=== PATIENT | male | born 1930 | race Caucasian/White ===

== ENCOUNTER 2017-02-25 07:38 | Emergency (ER) | payer OTHER ==
[~2017-02-25] VITALS: Ht 180.3 cm; Wt 85.7 kg
[~2017-02-25 07:38] MED LIST: CHOL100010 PO; GLCSUNK PO; ISOS30TA3 PO; LSNUNK PO; MULT-506 PO; NTRGSL/4 UT; ZCRUNK PO
[2017-02-25 07:43] VITALS: TEMP 36.4; Ht 180.3 cm; Wt 85.7 kg
[2017-02-25] MEDS ORDERED: SODIUM CHLORIDE 0.9% 1000ML 1,000 ML IV STA (08:20)
[2017-02-25] MEDS ORDERED: KETOROLAC TROMETHAMINE 30 MG/ML VIAL IV STA (08:20)
[2017-02-25 08:34] LABS: BASO % 0.2 %; BASO ABS # 0.02 K/uL (0-0.2); COMPLETE YES; EOS % 0.3 %; HEMATOCRIT 41.4 % (42-52); IG% 0.2 %; LYMPH % 21.4 %; MEAN CELL VOLUME 90.6 fL (80-100); MEAN CORPUSCULAR HEMOGLOBIN 30.9 pg (25-34); MEAN CORPUSCULAR HGB CONC 34.1 g/dl (32-36); MEAN PLATELET VOLUME 10.6 fL (7.4-10.4); MONO % 8.1 %; NEUT % 69.8 %; PLATELET COUNT 169 K/uL (130-400); RED BLOOD COUNT 4.57 M/uL (4.7-6.1); WHITE BLOOD COUNT 11.68 K/uL (4.8-10.8)
[2017-02-25 08:44] LABS: BUN/CREATININE RATIO 18.7 (10-20); CALCIUM 8.7 mg/dl (8.5-10.1); CREATININE 1.2 mg/dl (0.60-1.40); POTASSIUM 3.8 mmol/L (3.5-5.1)
--- NOTE | 2017-02-25 08:59 | DIAGNOSTIC IMAGING REPORT ---
ABDOMEN 2VIEW W/PA CHEST RTN CLINICAL HISTORY: right upper quadrant pain/constipation pain COMPARISON STUDY: No previous studies for comparison. FINDINGS: Calcification to the right of the L4-L5 level of the lumbar spine. Possibility of a ureteral calculus is considered. No acute process the chest. Nonobstructive bowel pattern. Moderate degenerative changes of the osseous structures throughout. IMPRESSION: Possible mid right ureteral calculus. Otherwise negative study Electronically signed by: Eduardo Warren M.D. 02/25/2017 8:58 AM Dictated Date/Time: 02/25/2017 8:57 AM
--- NOTE | 2017-02-25 09:58 | DIAGNOSTIC IMAGING REPORT ---
CT SCAN OF THE ABDOMEN AND PELVIS WITHOUT CONTRAST CLINICAL HISTORY: Right-sided abdominal pain. COMPARISON STUDY: No previous studies for comparison. TECHNIQUE: CT scan of the abdomen and pelvis was performed from the lung bases to the proximal femurs. Images are reviewed in the axial, sagittal, and coronal planes. IV contrast was not administered for this examination. CT DOSE: 1049.23 mGycm FINDINGS: Lower chest: There are moderate coronary artery calcifications. There is pulmonary emphysema. There is mild bibasal atelectasis. Liver: The unenhanced liver is normal in size, contour, and attenuation. There is no intrahepatic biliary ductal dilatation. Gallbladder: Unremarkable. Spleen: Normal in size and attenuation. Pancreas: Unremarkable. Adrenal glands: Unremarkable. Kidneys: No renal calculi are visualized. There is right-sided hydronephrosis and right-sided perinephric stranding. There is right-sided periureteral edema. There is a 7 mm obstructing proximal to mid right ureteral calculus at the L5 level. Bowel: There are no transition zones to indicate bowel obstruction. There is colonic diverticulosis. There are no acute peridiverticular inflammatory changes. The appendix appears normal as visualized. There is a small hiatal hernia. Peritoneum: There is no intraperitoneal free air or abdominal ascites. Vasculature: The abdominal aorta is normal in course and caliber. There are extensive atheromatous calcification within the right common femoral, superficial femoral, and profunda artery. There is also dense calcification at the superior mesenteric artery origin. Adenopathy: None. Pelvic viscera: The prostate is mildly enlarged. Skeletal structures: No destructive osseous lesions are seen. IMPRESSION: 1. 7 mm obstructing proximal to mid right ureteral calculus at the L5 level with secondary right-sided hydroureteronephrosis. Electronically signed by: Brian Sullivan M.D. 02/25/2017 9:57 AM Dictated Date/Time: 02/25/2017 9:52 AM
[2017-02-25] MEDS ORDERED: CYAN100073 (10:45)
[2017-02-25] MEDS ORDERED: GLUC10007 PO (10:45)
[2017-02-25] MEDS ORDERED: FAMO40TA6 PO (10:45)
[2017-02-25] MEDS ORDERED: ISOS30TA35 PO (10:45)
[2017-02-25] MEDS ORDERED: CLOP1TAB15 PO (10:45)
[2017-02-25] MEDS ORDERED: SIMV20TA2 PO (10:45)
[2017-02-25] MEDS ORDERED: ERGO500037 PO (10:45)
[2017-02-25] MEDS ORDERED: MULT-839 (10:45)
[2017-02-25] MEDS ORDERED: LISI-461 (10:45)
[2017-02-25] MEDS ORDERED: ASPI81TA28 PO (10:45)
[2017-02-25] MEDS ORDERED: MULT-1018 (10:45)
[2017-02-25] MEDS ORDERED: TAMS0.4C38 PO (10:53)
[2017-02-25] MEDS ORDERED: ONDA4TAB10 SL (10:53)
[2017-02-25] MEDS ORDERED: HYDR-5688 PO (10:54)
[2017-02-25 10:58] LABS: URINE APPEARANCE CLEAR (CLEAR); URINE BILIRUBIN NEG (NEG); URINE COLOR DK YELLOW; URINE NITRITE NEG (NEG); URINE SPECIFIC GRAVITY 1.027 (1.000-1.030); UROBILINOGEN NEG (NEG); ZZUR CULT IF INDIC CLEAN CATCH YES
[2017-02-25 11:18] LABS: MANUAL MICROSCOPIC REQUIRED? NO; REVIEW REQ? YES
--- NOTE | 2017-02-25 11:31 | EMERGENCY ROOM VISIT NOTE ---
History First contact with patient: 07:47 Chief Complaint: ABDOMINAL PAIN Stated Complaint: PAIN IN RIGHT SIDE Nursing Triage Summary: RUQ/right flank pain that started yesterday. Denies N/V/D. History of Present Illness The patient is a 86 year old male who presents to the Emergency Room with complaints of right upper to right mid abdomen pain which started yesterday. The patient denies any fever. The patient does admit to some nausea yesterday but not today. The patient denies any vomiting or diarrhea. The patient denies any urinary symptoms of frequency, urgency, dysuria or hematuria. The patient denies any history of kidney stones. The patient does admit to history of chronic constipation. Yesterday he went to the pharmacy and the pharmacist instructed him to use some stool softeners. He states he used them yesterday and had a very small bowel movement this morning. The patient currently is rating the pain at an 8 out of 10. The patient denies any chest pain or shortness of breath. The patient's family doctor is Dr. Davis Review of Systems 10 system review was performed and was negative unless stated otherwise history of present illness. Past Medical/Surgical History CAD, hyperlipidemia Social History Smoking Status: Never Smoker Smokeless Tobacco Use: No Drug Use: none Marital Status: Housing Status: lives with family Occupation Status: retired Current/Historical Medications Scheduled Aspirin (Aspirin Ec), 81 MG PO DAILY Clopidogrel (Plavix), 75 MG PO DAILY Cyanocobalamin (B12), three times a week Ergocalciferol (Vitamin D 47716 Unit), 1 CAP PO WK Famotidine (Pepcid), 1 TAB PO DAILY Isosorbide Mononitrate Ext Rel (Imdur Ext Rel), 1 TAB PO QAM Multivitamin (Multivitamin), 1 TAB PO DAILY Nitroglycerin (Nitrostat), 0.4 MG UT PRN Ondasetron Odt (Zofran Odt), 4 MG SL Q6H Simvastatin (Zocor), 1 TAB PO DAILY Tamsulosin Hcl (Flomax), 0.4 MG PO DAILY Scheduled PRN Hydrocodone/Acetaminophen 5MG/325MG ([place] 5MG/325MG), 1-2 TABLET PO Q6 PRN for Pain Miscellaneous Medications Glucosamine Sulfate (Glucosamine), 1,000 MG PO Lisinopril (Lisinopril) Multiple Vitamins W/ Minerals (Hair Skin and Nails Formu) Multiple Vitamins W/ Minerals (Vision Formula/Lutein) Physical Exam Vital Signs Date Time Temp Pulse Resp B/P (MAP) Pulse Ox O2 Delivery O2 Flow Rate FiO2 02/25/17 10:48 49 13 96 02/25/17 10:47 126/48 02/25/17 10:43 48 8 02/25/17 10:38 48 18 02/25/17 10:33 48 12 02/25/17 10:31 124/52 02/25/17 10:28 53 17 02/25/17 10:23 54 15 98 02/25/17 10:18 50 17 98 02/25/17 10:16 146/85 02/25/17 10:13 66 17 02/25/17 10:08 64 15 02/25/17 10:03 63 17 02/25/17 10:02 176/92 02/25/17 09:59 141/104 02/25/17 09:58 57 20 100 02/25/17 09:28 53 16 99 02/25/17 09:23 53 18 98 02/25/17 09:18 56 16 98 02/25/17 09:16 152/76 02/25/17 09:13 59 19 95 02/25/17 09:08 49 14 97 02/25/17 09:03 46 11 96 02/25/17 09:01 170/72 02/25/17 08:58 64 17 97 02/25/17 08:56 163/97 02/25/17 08:23 57 15 94 02/25/17 08:18 50 16 96 02/25/17 08:17 170/69 02/25/17 08:13 53 19 97 02/25/17 08:08 51 20 02/25/17 08:03 51 16 98 02/25/17 08:01 177/82 02/25/17 07:59 61 02/25/17 07:58 58 18 98 02/25/17 07:56 189/85 02/25/17 07:51 193/92 02/25/17 07:43 36.4 52 17 196/90 99 Room Air Physical Exam GENERAL: 86-year-old white male appears in no acute distress. He is lying quietly on the exam stretcher. MENTAL Status: Alert and oriented 3. MOUTH: Mucosa is slightly dry. NECK: Supple, no lymphadenopathy noted. No carotid bruits noted. LUNGS: Clear auscultation without wheezes rales or rhonchi. CARDIAC: Regular rate and rhythm without murmur. Pulses is full and equal throughout. BACK: No CVA tenderness noted. ABDOMEN: Positive bowel sounds all 4 quadrants. Soft, mild tenderness palpation in the right upper to right mid quadrant otherwise nontender to palpation without organomegaly or masses. EXTREMITIES: No cyanosis or edema noted. Medical Decision & Procedures ER Provider Diagnostic Interpretation: ABDOMEN 2VIEW W/PA CHEST RTN CLINICAL HISTORY: right upper quadrant pain/constipation pain COMPARISON STUDY: No previous studies for comparison. FINDINGS: Calcification to the right of the L4-L5 level of the lumbar spine. Possibility of a ureteral calculus is considered. No acute process the chest. Nonobstructive bowel pattern. Moderate degenerative changes of the osseous structures throughout. IMPRESSION: Possible mid right ureteral calculus. Otherwise negative study Electronically signed by: Eduardo Warren M.D. 02/25/2017 8:58 AM Dictated Date/Time: 02/25/2017 8:[address] SCAN OF THE ABDOMEN AND PELVIS WITHOUT CONTRAST CLINICAL HISTORY: Right-sided abdominal pain. COMPARISON STUDY: No previous studies for comparison. TECHNIQUE: CT scan of the abdomen and pelvis was performed from the lung bases to the proximal femurs. Images are reviewed in the axial, sagittal, and coronal planes. IV contrast was not administered for this examination. CT DOSE: 1049.23 mGycm FINDINGS: Lower chest: There are moderate coronary artery calcifications. There is pulmonary emphysema. There is mild bibasal atelectasis. Liver: The unenhanced liver is normal in size, contour, and attenuation. There is no intrahepatic biliary ductal dilatation. Gallbladder: Unremarkable. Spleen: Normal in size and attenuation. Pancreas: Unremarkable. Adrenal glands: Unremarkable. Kidneys: No renal calculi are visualized. There is right-sided hydronephrosis and right-sided perinephric stranding. There is right-sided periureteral edema. There is a 7 mm obstructing proximal to mid right ureteral calculus at the L5 level. Bowel: There are no transition zones to indicate bowel obstruction. There is colonic diverticulosis. There are no acute peridiverticular inflammatory changes. The appendix appears normal as visualized. There is a small hiatal hernia. Peritoneum: There is no intraperitoneal free air or abdominal ascites. Vasculature: The abdominal aorta is normal in course and caliber. There are extensive atheromatous calcification within the right common femoral, superficial femoral, and profunda artery. There is also dense calcification at the superior mesenteric artery origin. Adenopathy: None. Pelvic viscera: The prostate is mildly enlarged. Skeletal structures: No destructive osseous lesions are seen. IMPRESSION: 1. 7 mm obstructing proximal to mid right ureteral calculus at the L5 level with secondary right-sided hydroureteronephrosis. Electronically signed by: Brian Sullivan M.D. 02/25/2017 9:57 AM Dictated Date/Time: 02/25/2017 9:52 AM Laboratory Results 02/25/17 08:05 Red Blood Count 4.57, Mean Corpuscular Volume 90.6, Mean Corpuscular Hemoglobin 30.9, Mean Corpuscular Hemoglobin Concent 34.1, Mean Platelet Volume 10.6, Neutrophils (%) (Auto) 69.8, Lymphocytes (%) (Auto) 21.4, Monocytes (%) (Auto) 8.1, Eosinophils (%) (Auto) 0.3, Basophils (%) (Auto) 0.2, Neutrophils # (Auto) 8.16, Lymphocytes # (Auto) 2.50, Monocytes # (Auto) 0.95, Eosinophils # (Auto) 0.03, Basophils # (Auto) 0.02 02/25/17 08:05 Test 02/25/17 08:05 02/25/17 10:20 White Blood Count 11.68 K/uL (4.8-10.8) Red Blood Count 4.57 M/uL (4.7-6.1) Hemoglobin 14.1 g/dL (14.0-18.0) Hematocrit 41.4 % (42-52) Mean Corpuscular Volume 90.6 fL (80-100) Mean Corpuscular Hemoglobin 30.9 pg (25-34) Mean Corpuscular Hemoglobin Concent 34.1 g/dl (32-36) Platelet Count 169 K/uL (130-400) Mean Platelet Volume 10.6 fL (7.4-10.4) Neutrophils (%) (Auto) 69.8 % Lymphocytes (%) (Auto) 21.4 % Monocytes (%) (Auto) 8.1 % Eosinophils (%) (Auto) 0.3 % Basophils (%) (Auto) 0.2 % Neutrophils # (Auto) 8.16 K/uL (1.4-6.5) Lymphocytes # (Auto) 2.50 K/uL (1.2-3.4) Monocytes # (Auto) 0.95 K/uL (0.11-0.59) Eosinophils # (Auto) 0.03 K/uL (0-0.5) Basophils # (Auto) 0.02 K/uL (0-0.2) RDW Standard Deviation 43.7 fL (36.4-46.3) RDW Coefficient of Variation 13.3 % (11.5-14.5) Immature Granulocyte % (Auto) 0.2 % Immature Granulocyte # (Auto) 0.02 K/uL (0.00-0.02) Anion Gap 9.0 mmol/L (3-11) Est Creatinine Clear Calc Drug Dose 47.0 ml/min Estimated GFR () 63.1 Estimated GFR (Non- 54.4 BUN/Creatinine Ratio 18.7 (10-20) Calcium Level 8.7 mg/dl (8.5-10.1) Total Bilirubin 1.4 mg/dl (0.2-1) Direct Bilirubin 0.3 mg/dl (0-0.2) Aspartate Amino Transf (AST/SGOT) 22 U/L (15-37) Alanine Aminotransferase (ALT/SGPT) 19 U/L (12-78) Alkaline Phosphatase 81 U/L (45-117) Total Protein 7.5 gm/dl (6.4-8.2) Albumin 4.1 gm/dl (3.4-5.0) Lipase 62 U/L (73-393) Urine Color DK YELLOW Urine Appearance CLEAR (CLEAR) Urine pH 5.0 (4.5-7.5) Urine Specific [place] 1.027 (1.000-1.030) Urine Protein 2+ (NEG) Urine Glucose (UA) NEG (NEG) Urine Ketones 1+ (NEG) Urine Occult Blood 3+ (NEG) Urine Nitrite NEG (NEG) Urine Bilirubin NEG (NEG) Urine Urobilinogen NEG (NEG) Urine Leukocyte Esterase NEG (NEG) Medications Administered Medications (Trade) Dose Ordered Sig/Tere Route Start Time Stop Time Status Last Admin Dose Admin Sodium Chloride 1,000 ml @ 999 mls/hr Q1H1M STAT IV 02/25/17 08:20 02/25/17 09:20 DC 02/25/17 08:38 999 MLS/HR Ketorolac Tromethamine (Toradol Inj) 30 mg NOW STAT IV 02/25/17 08:20 02/25/17 08:22 DC 02/25/17 08:38 30 MG ECG Indication: abdominal pain Rhythm: sinus bradycardia Findings: no acute ischemic change Comparison ECG Date: no prior available ED Course The patient was evaluated. EMR and medication list were reviewed. The patient' s blood pressure on admission to the ER was 196/90. EKG had been performed by protocol. No acute changes noted. The patient was evaluated. IV access was obtained. The patient was given 1 L normal saline wide-open. CBC and differential, renal profile, LFTs and lipase levels were ordered. Urinalysis was ordered. The patient was given Toradol 30 mg IV for pain. X-ray of the abdomen was ordered and interpreted by the radiologist and myself with a possible right ureteral calculi. The patient was informed of the findings. Labs are reviewed and were unremarkable. The patient initially was unable to give a urine sample. He finally was able to give a small urine sample. CT stone study was ordered and interpreted by the radiologist as above with a 7 mm obstructing calculus at the L5 level. The patient was reevaluated was feeling much better. The patient was independently evaluated by Dr. Del Rosario who agreed with treatment plan. Urinalysis was negative. The patient was informed of findings and discharged home in stable condition. Medical Decision Differential diagnosis include constipation, ureteral calculi, pyelonephritis, UTI, bowel obstruction, acute appendicitis Impression Primary Impression: Right ureteral calculus Departure Information Dispostion Home / Self-Care Condition GOOD Prescriptions Hydrocodone/Acetaminophen 5MG/325MG ([place] 5MG/325MG) Tab 1-2 TABLET PO Q6 Y for Pain, #20 TAB For Initial Treatment Prov: Marichuy Warren PA-C 02/25/17 Ondasetron Odt (ZOFRAN ODT) 4 Mg Tab 4 MG SL Q6H for Nausea, #10 TAB Prov: Marichuy Warren PA-C 02/25/17 Tamsulosin Hcl (FLOMAX) 0.4 Mg Cap 0.4 MG PO DAILY for 7 Days, #7 CAP Prov: Marichuy Warren PA-C 02/25/17 Referrals Gabriele Michel M.D. (PCP) Rasheeda Cage MD Forms HOME CARE DOCUMENTATION FORM, IMPORTANT VISIT INFORMATION Patient Instructions Kidney Stones, [facility] Additional Instructions Blood pressure was elevated at today's visit and therefore we recommend a blood pressure recheck in 2 days with your family physician. Ibuprofen 600 mg every 6 hours with food for pain. Take [place] as needed for more severe pain. Do not drive while taking the [place]. Take Zofran as needed for nausea. Take Flomax daily as directed. Strain all urine. If you experience any severe abdominal pain, uncontrolled nausea vomiting return to ER immediately. If he does not pass the stone in 2-3 days recommend follow-up with urology.
[2017-02-25 11:39] VITALS: BP 169/76; PULSE 53; O2SAT 95
--- NOTE | 2017-02-25 19:08 | EMERGENCY ROOM VISIT NOTE ---
ED Visit Note First contact with patient: 07:47 I have personally evaluated and examined this patient. I agree with assessment and plan of Sun Warren PA-C. 86 yr old pleasant male in no distress who has been found to have 7mm right ureteral stone. Will treat conservatively as outpatient.
== END 2017-02-25 11:48 | disposition home or self-care (01) ==
LOC: C.EDB 07:40
DX: N20.1 Calculus of ureter (principal); I25.10 Atherosclerotic heart disease of native coronary artery without angina pectoris; E78.5 Hyperlipidemia, unspecified; Z79.82 Long term (current) use of aspirin